=== PATIENT | male | born 1965 | race Caucasian/White ===

== ENCOUNTER 2018-07-22 18:55 | Emergency (ER) | payer OTHER ==
[~2018-07-22] VITALS: Ht 170.2 cm; Wt 80.3 kg
[~2018-07-22 18:55] MED LIST: CELEBREX 200 M200 MG PO; FLEXERIL PO; LOSARTAN POTASS50 MG PO; NORCO 5-325 TA1 EACH PO; OMEPRAZOLE20 MG PO; PERCOCET 5-3251 EACH PO
[2018-07-22] MEDS ORDERED: COZAAR 25 MG TA25 M1 PO (19:14)
[2018-07-22] MEDS ORDERED: MOBIC15 MG PO (19:14)
[2018-07-22] MEDS ORDERED: NEXIUM2.5 MG PO (19:16)
[2018-07-22 20:47] VITALS: BP 130/97
== END 2018-07-22 20:51 | disposition home or self-care (01) ==
LOC: ER 18:55
DX: S09.90XA Unspecified injury of head, initial encounter (principal); I10 Essential (primary) hypertension; K21.9 Gastro-esophageal reflux disease without esophagitis; W18.30XA Fall on same level, unspecified, initial encounter; Y93.89 Activity, other specified; Y92.89 Other specified places as the place of occurrence of the external cause; Y99.8 Other external cause status